=== PATIENT | male | born 2005 | race Caucasian/White ===

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

== ENCOUNTER 2025-09-01 11:05 | Emergency (ER) | payer OTHER, SELFPAY ==
[2025-09-01 11:17] VITALS: BP 111/63; PULSE 85; RESP 18; TEMP 36.6; O2SAT 97
--- NOTE | 2025-09-01 12:10 | ED_ITS ---
HPI - Nausea/Vomiting/Diarrhea General Chief complaint: Nausea/Vomiting/Diarrhea Stated complaint: N/V Time Seen by Provider: 09/01/25 12:04 Source: patient and RN notes reviewed Mode of arrival: ambulatory Limitations: no limitations History of Present Illness HPI Narrative: 19-year-old male patient presents today complaining of headache and nausea. Yesterday he had 2 episodes of vomiting with fever up to 100 and some mild diarrhea. States his symptoms are significantly better today. He has not vomited today and has been able to keep down a little bit of food in some fluids. Denies abdominal pain. He took some flu medicine yesterday. Related Data Home Medications ?Medication ?Instructions ?Recorded ?Confirmed ?Last Taken ?Type albuterol sulfate 90 mcg/actuation 2 puff inhalation Q 3-4H PRN 11/11/20 09/01/25 Unknown History aerosol inhaler Shortness Of Breath Or Wheez ing Held on 09/01/25. Instructions: .Provider Order Allergies Allergy/AdvReac Type Severity Reaction Status Date / Time NKDA Allergy Unknown Other Uncoded 04/16/24 15:24 [facility] Past Medical History Medical History Umbilical hernia Asthma Surgical History Surgical History History of knee surgery s/p L patellar tendon History of tonsillectomy and adenoidectomy H/O umbilical hernia repair Social History Social History Smoking status: Never smoker Alcohol intake: never Substance use: never Living arrangements: with family Occupation/Education: student Gender identity (if verbalized by the patient): Male Comments At time of signature, I have reviewed and agree with nursing past medical, surgical, social and family history unless otherwise noted. Please see nursing chart for further information. There is no relevant family history pertinent to the presenting complaint Exam Narrative: GENERAL: Well-appearing, well-nourished, and in no acute distress. HEAD: Normocephalic, atraumatic. EYES: EOMI. No redness or drainage. Conjunctivae normal. ENT: Mucous membranes pink and moist. Nares clear. No rhinorrhea. TMs normal bilaterally. Throat normal. Uvula midline. NECK: Normal AROM. Supple. No lymphadenopathy. CHEST: No respiratory distress. Clear to auscultation. HEART: Regular rate and rhythm. No murmur appreciated. Normal peripheral pulses. ABDOMEN: Soft, nontender, nondistended, normal active bowel sounds. MUSCULOSKELETAL: No bony tenderness. EXTREMITIES: Normal range of motion. No edema. SKIN: Warm, dry, no rash. Capillary refill normal. Normal skin turgor. NEURO: No focal deficits. Alert and oriented x3. Gait steady. PSYCH: Normal affect. No signs of depression or anxiety. Course Course Level of Care: Express Care Visit Vital Signs Vital signs: Vital Signs Temperature 97.8 F 09/01/25 11:17 Pulse Rate 85 09/01/25 11:17 Respiratory Rate 18 09/01/25 11:17 Blood Pressure 111/63 09/01/25 11:17 Pulse Oximetry 97 09/01/25 11:17 Oxygen Delivery Room Air 09/01/25 11:17 Temperature 97.8 F 09/01/25 11:17 Pulse Rate 85 09/01/25 11:17 Respiratory Rate 18 09/01/25 11:17 Blood Pressure 111/63 09/01/25 11:17 Pulse Oximetry 97 09/01/25 11:17 Oxygen Delivery Room Air 09/01/25 11:17 Reviewed MDM - Nausea/Vomiting/Diarrhea MDM Narrative Medical decision making narrative: 19-year-old male patient presents today complaining of headache and nausea. Yesterday he had 2 episodes of vomiting with fever up to 100 and some mild diarrhea. States his symptoms are significantly better today. He has not vomited today and has been able to keep down a little bit of food in some fluids. Denies abdominal pain. He took some flu medicine yesterday. Normal p hysical exam. Patient's symptoms are likely viral in etiology. Discussed [id number] medication use and duration of illness. Will prescribe short course of Zofran if needed for his nausea. Also discussed eating and drinking bland foods and advancing diet slowly as tolerated. Patient agrees with plan. Vital signs stable. Anticipatory guidance given. Differential Diagnosis Differential diagnosis: Likely food poisoning, gastroenteritis and dehydration Critical Care Time Critical Care Time Critical Care Time: No Discharge Plan Discharge Clinical Impression: Viral syndrome Patient Disposition: Home Condition: Stable Instructions: Acute Nausea and Vomiting (DC) Additional Instructions: Your symptoms are likely due to a viral illness, which is not treated with antibiotics. Virus symptoms can last for up to 7-10days. Take Tylenol for pain or fever. Rest and stay hydrated. Take the Zofran as prescribed for your persistent nausea. Eat bland foods today as tolerated. You may advance your diet slowly. Follow up with your PCP in 3 days if symptoms are not improving. Go to the ER immediately if you develop severe abdominal pain, uncontrolled vomi ting even with the medication. Patient Language: Welsh Prescriptions: New ondansetron 4 mg tablet,disintegrating 4 mg PO TID PRN (Reason: nausea and vomiting) Qty: 10 0RF No Action albuterol sulfate 90 mcg/actuation HFA aerosol inhaler 2 puff INHALATION Q3-4H PRN (Reason: Shortness Of Breath Or Wheezing) Follow-up/Referrals: Mustapha Chao MD [Primary Care Provider, Pediatrics] Stand Alone Forms: Work/School Release IP Time of Disposition: 12:15
--- OUTSIDE RECORDS SUMMARY | 2025-09-01 13:14 | XMS_ITS | Clinical Summary ---
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 Sex Male 8:51 AM PURCHASING MANAGER/SALES Gender Identity Not on file Sexual Orientation Not on file Plan of Treatment Health Maintenance Due Date Last Done Comments Annual Physical 2008 Hepatitis C 2023 Hepatitis B Vaccines (1 of 3 - 19+ 3-dose series) 2024 COVID-19 Vaccine (2024-2 6 season) 2025 07/13/2021, 06/21/2021 Influenza Adult (#1) 2025 07/31/2017 DTaP, Tdap and Td Vaccines ( 2 - Td or Tdap) 05/11/2027 05/11/2017 HPV Vaccines Completed 02/07/2018, 10/10/2017, 07/31/2017 Meningococcal Vaccine Completed 05/27/2022 , 05/11/2017 Meningococcal B Vaccine Completed 06/28/20, 05/27/2022 Hepatitis A Vaccines Aged Out No long er eligible based on patient's age to complete this topic Pneumococcal Vaccine: Pediatrics (0 to 5 Years) and At-Risk Patients (6 to 49 Years) Aged Out No longer eligible b ased on patient's age to complete this topic RSV Immunizations Under 20 Months Aged Out No longer eligible b ased on patient's age to complete this topic Insurance [employer] [place] [id number]
--- OUTSIDE RECORDS SUMMARY | 2025-09-01 13:14 | XMS_ITS | Clinical Summary ---
Author Organization [facility] Address [address] [address] Care Team Providers Care User Interface Designer Name Role Phone Mustapha Sterling MD Primary Care Provider [phone] Source Comments [facility],non-owned Affiliates and Associated Physician Practices is amultiple site organization consisting of ambulatory clinics and hospital sitesin [place], [place], [place] and [place]. This disclosure is being madepursuant to the Care Everywhere program and may not contain all information available regarding this patient. Last updated 18.[facility] Allergies No known active allergies Medications * Be aware that medications may not be up to date on this document. Alwaysverify current medications with the patient. ALBUTEROL IN Inhale by mouth. 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 Social History Tobacco Use Types Packs/Day Years Used Date Smoking Tobacco: Never Smokeless Tobacco: Never Alcohol Use Standard Drinks/Week Comments No 0 (1 standard drink = 0.6 oz pur e alcohol) Sex and Gender Information Value Date Recorded Sex Assigned at Not on file 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 Gender Identity Not on file Sexual Orientation Not on file Last Filed Vital Signs Vital Sign Reading Time Taken Comments Blood Pressure 110/62 02/09/2018 8:38 AM CDT Pulse - - Temperature - - Respiratory Rate - - Oxygen Saturation - - Inhaled Oxygen Concentration - - Weight 61.5 kg (135 lb 9.3 oz) 03/31/2023 1:44 P M CDT Height 179 cm (5' 10.47) 03/31/2023 1:44 PM CDT Body Mass Index 19.19 03/31/2023 1:44 PM CDT Body Mass Index Percentile 17.06% 03/31/2023 1:4 4 PM CDT Growth Chart: [facility] (Boys, 2-2 0 Years) Plan of Treatment Health Maintenance Due Date Last Done Comments HIV SCREENING 2020 HPV VACCINE (1 - Male 3-dose series) 2020 MENINGOCOCCAL (Group B) VACC INE SHARED DECISION-MAKING (1 of 2 - Standard) 2021 HEPATITIS C SCREENING 10/28/2023 DEPRESSION SCREENING 10/09/2024 DTAP/TDAP/TD VACCINES (1 - Tdap) 2024 HEPATITIS B VACCINE (1 of 3 - 19+ 3-dose series) 2024 COVID-19 VACCINE (1 - 2024-2 6 season) 2025 INFLUENZA VACCINE (#1) 2025 ZOSTER VACCINE (1 of 2) 2055 HIB VACCINE Aged Out No longer eligi ble based on patient's age to complete this topic MENINGOCOCCAL GROUPS A/C/Y/W VACCINE Aged Out No longer eligible b ased on patient's age to complete this topic PNEUMOCOCCAL VACCINE Aged Out No long er eligible based on patient's age to [place] [id number] [address] [facility] [place] [address] Care Teams User Interface Designer Relationship Specialty Start Date End Date Mustapha Sterling MD [address] [place] [id number] PCP - General Pediatrics 03/14/12
== END 2025-09-01 12:22 | disposition home or self-care (01) ==
PROVIDERS: Emergency Provider Nurse Practitioner; PCP Pediatrics
DX: B34.9 Viral infection, unspecified (principal); J45.909 Unspecified asthma, uncomplicated
CPT/HCPCS: 99213; G0463